=== PATIENT | male | born 1985 ===

== ENCOUNTER 2018-01-20 09:36 | Inpatient (IN) | payer MEDICAID, OTHER ==
[2018-01-20 09:42] VITALS: BMI 27.3
[2018-01-20] MEDS ORDERED: Sodium Chloride 0.9% 1,000 ML IV STA ×3 (10:52→22:01)
[2018-01-20] MEDS ORDERED: Iohexol 240 (50 ml) ONE (10:58)
[2018-01-20] MEDS ORDERED: Morphine 4 MG/ML VIAL ONE ×3 (10:59→15:48)
[2018-01-20] MEDS: Iohexol 240 (50 ml) PO ONE ×2 (11:10→11:35)
[2018-01-20 11:29] LABS: BASO % 0.2 % (0.0-2.0); HEMOGLOBIN 14.2 g/dL (12.0-18.0); LYMPH # 0.9 K/uL (1.0-4.3); LYMPH % 6.6 % (20.0-40.0); MEAN CELL VOLUME 90.8 fl (80.0-94.0); MEAN CORPUSCULAR HEMOGLOBIN 30.1 pg (27.0-31.0); MEAN CORPUSCULAR HGB CONC 33.1 g/dL (33.0-37.0); MEAN PLATELET VOLUME 8.3 fl (7.2-11.7); MONO # 0.5 K/uL (0.0-0.8); MONO % 3.8 % (0.0-10.0); NEUT # 11.5 K/uL (1.8-7.0); NEUT % 89.4 % (50.0-75.0); PLATELET COUNT 289 K/uL (130-400); RBC 4.73 Mil/uL (4.40-5.90); RED CELL DISTRIBUTION WIDTH 12.3 % (11.5-14.5); WHITE BLOOD COUNT 12.9 K/uL (4.8-10.8)
[2018-01-20 11:35] LABS: ALB/GLOB RATIO 1.6 (1.0-2.1); ALT/SGPT 38 U/L (21-72); AST/SGOT 32 U/L (17-59); BLOOD UREA NITROGEN 16 mg/dl (9-20); CALCIUM 10.1 mg/dL (8.4-10.2); GFR AFRICAN-AMERICAN > 60; GFR NON-AFRICAN AMERICAN > 60; LIPASE 140 U/L (23-300)
--- NOTE | 2018-01-20 11:52 | ED PDOC ---
HPI: Abdomen Time Seen by Provider: 01/20/18 09:45 Chief Complaint (Nursing): Abdominal Pain Chief Complaint (Provider): abdominal pain History Per: Patient History/Exam Limitations: no limitations Onset/Duration Of Symptoms: Days (x1) Current Symptoms Are (Timing): Still Present Associated Symptoms: Nausea, Vomiting. denies: Fever, Chills, Diarrhea Additional Complaint(s): Pb Stevenson is a 32 year old male, with a past medical history of diaphragmatic hernia scheduled for surgery in feb, who presents to the emergency department complaining of a generalized abdominal pain associated with nausea onset since yesterday, but has been intermittant for 8 months. Patient vomited once in the ER. He denies any fever, chills, or diarrhea. No further medical complaints. PMD: None provided. Past Medical History Reviewed: Historical Data, Nursing Documentation, Vital Signs Vital Signs: Last Vital Signs Temp 98.4 F 01/20/18 17:45 Pulse 66 01/20/18 17:45 Resp 18 01/20/18 17:45 BP 144/95 H 01/20/18 17:45 Pulse Ox 93 L 01/20/18 17:45 - Medical History Other PMH: diaphragmatic hernia - Surgical History Surgical History: No Surg Hx - Family History Family History: States: Unknown Family Hx - Social History Current smoker - smoking cessation education provided: No Alcohol: None Drugs: Denies - Home Medications Home Medications: Ambulatory Orders Medication Instructions Recorded No Known Home Med 01/20/18 - Allergies Allergies/Adverse Reactions: Allergies Allergy/AdvReac Type Severity Reaction Status Date / Time No Known Allergies Allergy Verified 01/20/18 10:40 Review of Systems ROS Statement: Except As Marked, All Systems Reviewed And Found Negative Constitutional: Negative for: Fever, Chills Gastrointestinal: Positive for: Nausea, Vomiting, Abdominal Pain. Negative for : Diarrhea Physical Exam - Reviewed Nursing Documentation Reviewed: Yes Vital Signs Reviewed: Yes - Physical Exam Appears: Positive for: No Acute Distress Head Exam: Positive for: ATRAUMATIC, NORMAL INSPECTION, NORMOCEPHALIC Skin: Positive for: Normal Color, Warm, Dry Eye Exam: Positive for: Normal appearance, EOMI, PERRL ENT: Positive for: Normal ENT Inspection Neck: Positive for: Painless ROM Cardiovascular/Chest: Positive for: Regular Rate, Rhythm. Negative for: Murmur Respiratory: Positive for: Normal Breath Sounds. Negative for: Respiratory Distress Gastrointestinal/Abdominal: Positive for: Bowel Sounds, Soft, Tenderness ( diffusely ). Negative for: Mass, Distended, Guarding Back: Positive for: Normal Inspection Extremity: Positive for: Normal ROM (upper and lower extremities). Negative for : Deformity, Swelling Neurologic/Psych: Positive for: Alert, Oriented. Negative for: Motor/Sensory Deficits - Laboratory Results Result Diagrams: 01/20/18 10:55 01/20/18 11:15 - ECG O2 Sat by Pulse Oximetry: 97 (RA) Pulse Ox Interpretation: Normal Medical Decision Making Medical Decision Making: Time: 10:01 Initial Impression: abdominal pain r/o appendicitis and diverticulitis Initial Plan: --Abd Pelvis PO & IV contrast [CT] --CMP --Lipase --CBC w/ differential --Morphine 4 mg IV --Sodium Chloride 1,000 ml IV 999 mls/hr --Omnipaque 240 ml 50 ml PO --Zofran Inj 4 mg IV --Reevaluation 11:15 -Family member brought reports of prior CT scans from other facilities. Patient reports pain worsen today and never lasted this long prompting concern for visit. -Explained the need for CT scan but patient is still unsure if he wants it. 12:51 -Patient is still in pain and wants pain medications. Will give more Morphine and agrees CT. 14:30 --CT ABD/pelvis FINDINGS: LOWER THORAX: Left diaphragmatic hernia reiterated with resultant compression of the left lower lobe. There is gastro-esophageal oral contrast reflux into the distal esophagus with the right base unremarkable. Normal cardiac size. Please see details of herniated bowel section below. LIVER: Unremarkable. No gross lesion or ductal dilatation. GALLBLADDER AND BILE DUCTS: Unremarkable. PANCREAS: Unremarkable. No gross lesion or ductal dilatation. SPLEEN: Unremarkable. ADRENALS: Unremarkable. No mass. KIDNEYS AND URETERS: Unremarkable. No hydronephrosis. No solid mass. VASCULATURE: Unremarkable. No aortic aneurysm. BOWEL: A large left dynamic hernia is appreciated which is of uncertain type but is not a Bochdalek type as it occurs more anterior at the left hemidiaphragm than the classic posterior location for Bochdalek hernia. Loops of small and large per oral arm default in this hernia. The splenic flexure is thickened with local mesenteric reaction associated with collapsed small bowel otherwise evident. There are there is also a an aggregate of cysts measuring 2.6 x 5.4 cm abutting the left lateral abdominal wall of uncertain origin. No peripheral enhancement is seen that would suggest abscess. Nevertheless, the pattern is most compatible with segmental colitis affecting the splenic flexure, presumably evident factitious origin though inflammatory or even ischemic causes are not completely excluded. Adequate vascularity of the superior mesenteric artery is appreciated extending into this hernia. No free intra peritoneal gas is identified. Small bowel is only identified in the left hemiabdomen compatible with malrotation. There is mild dilatation of small bowel at the left upper quadrant / left rachel abdomen which are filled with oral contrast. Bowel obstruction is not favored here. Follow-up abdomen radiography is recommended to further evaluate transit of oral contrast through small bowel nevertheless. Distal large bowel is collapsed without prominent dilatation of ascending and transverse colon segments. Large-bowel obstruction is not felt to be present. Again, radiographic follow-up is recommended. APPENDIX: Normal appendix. PERITONEUM: Unremarkable. No free fluid. No free air. LYMPH NODES: Unremarkable. No enlarged lymph nodes. BLADDER: Unremarkable. REPRODUCTIVE: Unremarkable. BONES: No acute fracture. OTHER FINDINGS: None. IMPRESSION: 1. 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 The presumably etiologies infectious although other etiologies are not excluded including inflammatory or ischemia. Follow-up colonoscopy is recommended following therapy as well as an underlying neoplasm is not excluded. 2. No definite additional acute findings. 1545 --Upon re-evaluation, patient is reporting persistent pain. Morphine 6mg IV additionally ordered. Patient will be admitted to medical service given elevated WBC, enteritis, and persistent pain. 1552 --Case discussed with Dr. Taylor medical service. spoke with surgery resident color television console monitor working with Dr Rapp, aware of the patient and consult. . ----- Scribe Attestation: Documented by Errol Palacio and Dior Blackwell, acting as scribes for Melisa Fenton MD. Provider Scribe Attestation: All medical record entries made by the Scribe were at my direction and personally dictated by me. I have reviewed the chart and agree that the record accurately reflects my personal performance of the history, physical exam, medical decision making, and the department course for this patient. I have also personally directed, reviewed, and agree with the discharge instructions and disposition. Disposition - Clinical Impression Clinical Impression: Abdominal pain, Diaphragmatic hernia, Enteritis - Patient ED Disposition Is Patient to be Admitted: No Counseled Patient/Family Regarding: Studies Performed, Diagnosis - Disposition Disposition Time: 15:00 Condition: STABLE
[2018-01-20 12:02] LABS: LYMPHOCYTE 10 % (20-50); MONOCYTE 3 % (0-10); NEUTROPHIL 86 % (42-75); PLATELET ESTIMATE NORMAL (NORMAL); REACTIVE LYMPHOCYTES 1 % (0-0); TOTAL CELLS COUNTED 100
[2018-01-20] MEDS ORDERED: Iohexol 300 100 ML IJ ONE (13:00)
[2018-01-20] MEDS ORDERED: Sodium Chloride 0.9% 50 ML IV ONE (13:01)
--- NOTE | 2018-01-20 15:25 | CT ---
Date of service: 01/20/2018 PROCEDURE: CT Abdomen and Pelvis with contrast HISTORY: generalized abd pain COMPARISON: Noncontrast chest CT 03/09/2013. Abdomen and pelvis CT with contrast 03/09/2013 as well. TECHNIQUE: Following oral and intravenous contrast administration, a CT examination of the abdomen and pelvis performed from the domes of the diaphragms to the symphysis pubis with reformatted datasets provided not only axial but also sagittal and coronal series. Contrast dose: Omnipaque 300, 95 cc Radiation dose: Total exam DLP = 543.82 mGy-cm. This CT exam was performed using one or more of the following dose reduction techniques: Automated exposure control, adjustment of the mA and/or kV according to patient size, and/or use of iterative reconstruction technique. FINDINGS: LOWER THORAX: Left diaphragmatic hernia reiterated with resultant compression of the left lower lobe. There is gastro-esophageal oral contrast reflux into the distal esophagus with the right base unremarkable. Normal cardiac size. Please see details of herniated bowel section below. LIVER: Unremarkable. No gross lesion or ductal dilatation. GALLBLADDER AND BILE DUCTS: Unremarkable. PANCREAS: Unremarkable. No gross lesion or ductal dilatation. SPLEEN: Unremarkable. ADRENALS: Unremarkable. No mass. KIDNEYS AND URETERS: Unremarkable. No hydronephrosis. No solid mass. VASCULATURE: Unremarkable. No aortic aneurysm. BOWEL: A large left dynamic hernia is appreciated which is of uncertain type but is not a Bochdalek type as it occurs more anterior at the left hemidiaphragm than the classic posterior location for Bochdalek hernia. Loops of small and large per oral arm default in this hernia. The splenic flexure is thickened with local mesenteric reaction associated with collapsed small bowel otherwise evident. There are there is also a an aggregate of cysts measuring 2.6 x 5.4 cm abutting the left lateral abdominal wall of uncertain origin. No peripheral enhancement is seen that would suggest abscess. Nevertheless, the pattern is most compatible with segmental colitis affecting the splenic flexure, presumably evident factitious origin though inflammatory or even ischemic causes are not completely excluded. Adequate vascularity of the superior mesenteric artery is appreciated extending into this hernia. No free intra peritoneal gas is identified. Small bowel is only identified in the left hemiabdomen compatible with malrotation. There is mild dilatation of small bowel at the left upper quadrant/ left rachel abdomen which are filled with oral contrast. Bowel obstruction is not favored here. Follow-up abdomen radiography is recommended to further evaluate transit of oral contrast through small bowel nevertheless. Distal large bowel is collapsed without prominent dilatation of ascending and transverse colon segments. Large-bowel obstruction is not felt to be present. Again, radiographic follow-up is recommended. APPENDIX: Normal appendix. PERITONEUM: Unremarkable. No free fluid. No free air. LYMPH NODES: Unremarkable. No enlarged lymph nodes. BLADDER: Unremarkable. REPRODUCTIVE: Unremarkable. BONES: No acute fracture. OTHER FINDINGS: None. IMPRESSION: 1. 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 The presumably etiologies infectious although other etiologies are not excluded including inflammatory or ischemia. Follow-up colonoscopy is recommended following therapy as well as an underlying neoplasm is not excluded. 2. No definite additional acute findings.
[2018-01-20] MEDS ORDERED: Ciprofloxacin 400mg/200ml D5W 400 MG/200 ML BAG IVPB STA (15:45)
[2018-01-20] MEDS ORDERED: metroNIDAZOLE 500mg/100ml NS 100 ML IVPB ONE ×2 (15:49→16:00)
[2018-01-20] MEDS ORDERED: Ciprofloxacin 400mg/200ml D5W 400 MG/200 ML BAG IVPB ONE (15:49)
[2018-01-20] MEDS: HYDROmorphone 1 mg/ml ISec IVP PRN (18:39)
[2018-01-20] MEDS: Dextrose 5%/0.45% NS 1,000 ML IV SCH (18:42)
[2018-01-20] MEDS: Ciprofloxacin 400mg/200ml D5W 400 MG/200 ML BAG IVPB SCH (21:32)
--- NOTE | 2018-01-20 22:14 | CP.PCM.CON ---
<David Masterson - Last Filed: 01/21/18 07:54> History of Present Illness - History of Present Illness History of Present Illness: General Surgery Consult Re: enteritis, diaphragmatic hernia HPI: 32M presented to the ED complaining of a generalized abdominal pain with nausea that began yesterday. 1 x non bloody emesis in ED. He has had the pain intermittently x 8 months but this is the most severe episode. Usually the pain went away within 45 minutes. Denies any fever, chills, headache, SOB, chest pain , constipation, diarrhea, dysuria. Last BM yesterday. He was diagnosed with the diaphragmatic hernia in 2013and was told that since it was chronic and he had been asymptomatic, that there was no need for surgery at that time. Pt No longer nauseous but still with pain. Pt dozing off during interview and exam. Reports he is on schedule for repair of hernia in February with Dr. Alan Cheung. PMH: Diaphragmatic hernia, Hx L Pneumothorax, GERD, Gut malrotation PSH: L chest tube SH: No tobacco, EtOH, or drug use FH: Non contributory All: NKDA Meds: See MAR Review of Systems - Review of Systems All systems: reviewed and no additional remarkable complaints except (as per HPI ) Past Patient History - Past Social History Alcohol: None Drugs: Denies - MUSCULOSKELETAL/RHEUMATOLOGICAL Hx Falls: No - GASTROINTESTINAL Hx Gastrointestinal Disorders: Yes - GENITOURINARY/GYNECOLOGICAL Hx Genitourinary Disorders: Yes - PSYCHIATRIC Hx Substance Use: No - SURGICAL HISTORY Other/Comment: hemopneumothorax - ANESTHESIA Hx Anesthesia: Yes Hx Anesthesia Reactions: No Hx Malignant Hyperthermia: No Has any member of the family had a problem w/ anesthesia?: No Meds Allergies/Adverse Reactions: Allergies Allergy/AdvReac Type Severity Reaction Status Date / Time No Known Allergies Allergy Verified 01/20/18 10:40 - Medications Medications: Current Medications Hydromorphone HCl (Dilaudid) 1 mg IVP Q4H PRN PRN Reason: Pain, moderate (4-7) Last Admin: 01/20/18 18:39 Dose: 1 mg Hydromorphone HCl (Dilaudid) 2 mg IVP Q4 PRN PRN Reason: Pain, severe (8-10) Dextrose/Sodium Chloride (Dextrose 5%/0.45% Ns 1000 Ml) 1,000 mls @ 100 mls/hr IV .Q10H KIEL Stop: 01/21/18 18:14 Last Admin: 01/20/18 18:42 Dose: 100 mls/hr Ciprofloxacin (Cipro 400mg/200ml Dsw) 400 mg in 200 mls @ 200 mls/hr IVPB Q12 KIEL PRN Reason: Protocol Last Admin: 01/20/18 21:32 Dose: 200 mls/hr Metronidazole (Flagyl 500mg/100ml Ns) 100 mls @ 100 mls/hr IVPB Q8 KIEL PRN Reason: Protocol Sodium Chloride (Sodium Chloride 0.9%) 1,000 mls @ 999 mls/hr IV .Q1H1M STA Stop: 01/20/18 23:01 Ondansetron HCl (Zofran Inj) 4 mg IVP Q4 PRN PRN Reason: Nausea/Vomiting Last Admin: 01/20/18 18:38 Dose: 4 mg Pantoprazole Sodium (Protonix Inj) 40 mg IVP Q12 [facility] Physical Exam - Constitutional Appears: Non-toxic, No Acute Distress - Head Exam Head Exam: ATRAUMATIC, NORMOCEPHALIC Results - Vital Signs Recent Vital Signs: Last Vital Signs Temp 98.4 F 01/20/18 17:45 Pulse 80 01/20/18 18:22 Resp 18 01/20/18 18:22 BP 144/95 H 01/20/18 17:45 Pulse Ox 97 01/20/18 18:51 - Labs Result Diagrams: 01/21/18 06:30 01/20/18 11:15 Labs: Laboratory Results - last 24 hr 01/20/18 01/20/18 10:55 11:15 WBC 12.9 H RBC 4.73 Hgb 14.2 Hct 43.0 MCV 90.8 MCH 30.1 MCHC 33.1 RDW 12.3 Plt Count 289 MPV 8.3 Neut % (Auto) 89.4 H Lymph % (Auto) 6.6 L [place] % (Auto) 3.8 Eos % (Auto) 0.0 Baso % (Auto) 0.2 Neut # (Auto) 11.5 H Lymph # (Auto) 0.9 L [place] # (Auto) 0.5 Eos # (Auto) 0.0 Baso # (Auto) 0.0 Neutrophils % (Manual) 86 H Lymphocytes % (Manual) 10 L Reactive Lymphs % 1 H Monocytes % (Manual) 3 Platelet Estimate Normal RBC Morphology Normal Sodium 140 Potassium 4.3 Chloride 104 Carbon Dioxide 25 Anion Gap 15 BUN 16 Creatinine 0.8 Est GFR ( Amer) > 60 Est GFR (Non-Af Amer) > 60 Random Glucose 111 H Calcium 10.1 Total Bilirubin 0.9 AST 32 ALT 38 Alkaline Phosphatase 78 Total Protein 8.1 Albumin 5.0 Globulin 3.1 Albumin/Globulin Ratio 1.6 Lipase 140 - Imaging and Cardiology CT scan - abdomen Status: Image reviewed by me, Report reviewed by me CT scan - chest Status: Image reviewed by me (non contrast), Report reviewed by me Assessment & Plan - Assessment and Plan (Free Text) Assessment: 32M with L diaphragmatic hernia and enteritis. Plan: R/O ischemic bowel AM labs - refused VBG to check lactate CT chest with contrast - refused by patient at this time as he had a chest scan (without contrast) today. I explained the need for accurate diagnosis and the possibility of if not properly diagnosed, and he still refused the scan at this time. Will try again tomorrow or if symptoms worsen. Pt will need a specialist who performs these types of surgeries for possible repair. Will try to contact pts CT surgeon Dr. Cheung. May need to be transferred to Dr. Cheung for treatment. D/W Dr. Dionte Masterson PGY4 <Harley Rapp - Last Filed: 01/21/18 14:06> History of Present Illness - History of Present Illness History of Present Illness: Patient was seen and examined at the bedside. Agree with resident's note above. Meds - Medications Medications: Current Medications Hydromorphone HCl (Dilaudid) 1 mg IVP Q4H PRN PRN Reason: Pain, moderate (4-7) Last Admin: 01/20/18 18:39 Dose: 1 mg Hydromorphone HCl (Dilaudid) 2 mg IVP Q4 PRN PRN Reason: Pain, severe (8-10) Last Admin: 01/21/18 13:22 Dose: 2 mg Dextrose/Sodium Chloride (Dextrose 5%/0.45% Ns 1000 Ml) 1,000 mls @ 100 mls/hr IV .Q10H KIEL Stop: 08/10/18 18:14 Last Admin: 01/21/18 05:50 Dose: Not Given Ciprofloxacin (Cipro 400mg/200ml Dsw) 400 mg in 200 mls @ 200 mls/hr IVPB Q12 KIEL PRN Reason: Protocol Last Admin: 01/21/18 09:07 Dose: 200 mls/hr Metronidazole (Flagyl 500mg/100ml Ns) 100 mls @ 100 mls/hr IVPB Q8 KIEL PRN Reason: Protocol Last Admin: 01/21/18 10:50 Dose: 100 mls/hr Ondansetron HCl (Zofran Inj) 4 mg IVP Q4 PRN PRN Reason: Nausea/Vomiting Last Admin: 01/21/18 09:19 Dose: 4 mg Pantoprazole Sodium (Protonix Inj) 40 mg IVP Q12 KIEL Last Admin: 01/21/18 09:12 Dose: 40 mg Physical Exam - Eye Exam Eye Exam: EOMI, Normal appearance, PERRL Pupil Exam: NORMAL ACCOMODATION - ENT Exam ENT Exam: Mucous Membranes Moist - Neck Exam Neck exam: Positive for: Full Rom, Normal Inspection - Respiratory Exam Additional comments: right CTA, no breath sounds on the left side - Cardiovascular Exam Cardiovascular Exam: REGULAR RHYTHM, +S1, +S2 - GI/Abdominal Exam GI & Abdominal Exam: Normal Bowel Sounds, Soft Additional comments: mildly tender to palpation, ND, no rebound - Rectal Exam Rectal Exam: Deferred - Extremities Exam Extremities exam: Positive for: full ROM, normal inspection - Back Exam Back exam: NORMAL INSPECTION - Neurological Exam Neurological exam: CN II-XII Intact, Normal Gait, Oriented x3 - Psychiatric Exam Psychiatric exam: Normal Affect, Normal Mood - Skin Skin Exam: Dry, Intact, Normal Color, Warm Results - Vital Signs Recent Vital Signs: Last Vital Signs Temp 97.9 F 01/21/18 08:26 Pulse 76 01/21/18 08:26 Resp 19 01/21/18 08:26 BP 153/88 H 01/21/18 08:26 Pulse Ox 93 L 01/21/18 08:26 - Labs Result Diagrams: 01/21/18 06:30 01/21/18 06:30 Labs: Laboratory Results - last 24 hr 01/21/18 01/21/18 06:30 06:30 WBC 15.6 H RBC 4.64 Hgb 14.1 Hct 41.7 MCV 89.8 MCH 30.4 MCHC 33.9 RDW 12.1 Plt Count 234 Sodium 135 Potassium 3.9 Chloride 97 L Carbon Dioxide 24 Anion Gap 18 BUN 11 Creatinine 0.6 L Est GFR ( Amer) > 60 Est GFR (Non-Af Amer) > 60 Random Glucose 116 H Calcium 10.0 Total Bilirubin 0.9 AST 24 ALT 36 Alkaline Phosphatase 73 Total Protein 7.6 Albumin 4.6 Globulin 2.9 Albumin/Globulin Ratio 1.6 Assessment & Plan - Assessment and Plan (Free Text) Plan: - Keep NPO - IV fluid hydration - Continue with antibiotics - Working on transferring patient to his surgeon Dr. Cheung at [facility] - Recommend Thoracic surgery consultation - No general surgery intervention secondary to his diaphragmatic herniation happen years ago and now everything is adhesed in the left thorax, if [patient is to undergo surgery it will have to be by thoracic surgery
[2018-01-21] MEDS: metroNIDAZOLE 500mg/100ml NS 100 ML IVPB SCH ×3 (01:04→17:22)
[2018-01-21] MEDS: Dextrose 5%/0.45% NS 1,000 ML IV SCH ×2 (05:50→14:57)
[2018-01-21 07:37] LABS: HEMOGLOBIN 14.1 g/dL (12.0-18.0); MEAN CELL VOLUME 89.8 fl (80.0-94.0); MEAN CORPUSCULAR HEMOGLOBIN 30.4 pg (27.0-31.0); MEAN CORPUSCULAR HGB CONC 33.9 g/dL (33.0-37.0); RBC 4.64 Mil/uL (4.40-5.90); RED CELL DISTRIBUTION WIDTH 12.1 % (11.5-14.5); WHITE BLOOD COUNT 15.6 K/uL (4.8-10.8)
[2018-01-21 08:06] LABS: ALB/GLOB RATIO 1.6 (1.0-2.1); ALBUMIN 4.6 g/dL (3.5-5.0); ALT/SGPT 36 U/L (21-72); AST/SGOT 24 U/L (17-59); BLOOD UREA NITROGEN 11 mg/dl (9-20); GFR AFRICAN-AMERICAN > 60; GFR NON-AFRICAN AMERICAN > 60
--- NOTE | 2018-01-21 08:24 | CP.PCM.PN ---
<Eunice Stroud - Last Filed: 01/21/18 08:22> Subjective - Date & Time of Evaluation Date of Evaluation: 01/21/18 Time of Evaluation: 07:40 - Subjective Subjective: General Surgery Dr. Rapp Pt S&E @bedside. STEPH. pt reports 1 episode NBNB vomiting. pain mildly improved. denies F/C. refusing CT Chest, stating that hes had too many CT scans in the last year and fears the radiation. Objective - Vital Signs/Intake and Output Vital Signs (last 24 hours): Temp Pulse Resp BP Pulse Ox 98.0 F 95 H 19 131/79 95 01/21/18 00:00 01/21/18 00:00 01/21/18 00:00 01/21/18 00:00 01/21/18 00:00 - Medications Medications: Current Medications Hydromorphone HCl (Dilaudid) 1 mg IVP Q4H PRN PRN Reason: Pain, moderate (4-7) Last Admin: 01/20/18 18:39 Dose: 1 mg Hydromorphone HCl (Dilaudid) 2 mg IVP Q4 PRN PRN Reason: Pain, severe (8-10) Last Admin: 01/21/18 02:57 Dose: 2 mg Dextrose/Sodium Chloride (Dextrose 5%/0.45% Ns 1000 Ml) 1,000 mls @ 100 mls/hr IV .Q10H KIEL Stop: 01/21/18 18:14 Last Admin: 01/21/18 05:50 Dose: Not Given Ciprofloxacin (Cipro 400mg/200ml Dsw) 400 mg in 200 mls @ 200 mls/hr IVPB Q12 KIEL PRN Reason: Protocol Last Admin: 01/20/18 21:32 Dose: 200 mls/hr Metronidazole (Flagyl 500mg/100ml Ns) 100 mls @ 100 mls/hr IVPB Q8 KIEL PRN Reason: Protocol Last Admin: 01/21/18 01:04 Dose: 100 mls/hr Ondansetron HCl (Zofran Inj) 4 mg IVP Q4 PRN PRN Reason: Nausea/Vomiting Last Admin: 01/20/18 18:38 Dose: 4 mg Pantoprazole Sodium (Protonix Inj) 40 mg IVP Q12 KIEL - Labs Labs: 01/21/18 06:30 01/21/18 06:30 - Constitutional Appears: Non-toxic, No Acute Distress - Head Exam Head Exam: NORMAL INSPECTION - Eye Exam Eye Exam: Normal appearance - ENT Exam ENT Exam: Mucous Membranes Moist - Respiratory Exam Respiratory Exam: NORMAL BREATHING PATTERN. absent: Accessory Muscle Use - Cardiovascular Exam Cardiovascular Exam: REGULAR RHYTHM. absent: Bradycardia, Tachycardia - GI/Abdominal Exam GI & Abdominal Exam: Soft, Tenderness (diffuse TTP, worse in epigastrium). absent: Distended, Firm, Guarding, Rigid, Rebound - Extremities Exam Extremities Exam: Normal Inspection - Neurological Exam Neurological Exam: Alert, Awake, Oriented x3 - Psychiatric Exam Psychiatric exam: Normal Affect, Normal Mood - Skin Skin Exam: Dry, Intact, Normal Color, Warm Assessment and Plan - Assessment and Plan (Free Text) Assessment: 32 y/o M w/ congenital diaphragmatic hernia c/o abd pain 2/2 enteritis vs obstruction - NPO/IVF - pain management - monitor bowel fxn - anti-emetic - daily labs - Pt refusing CT chest - Pt reports scheduled surgery in Feb @[facility] w/ Dr. Alan Cheung - consider transferring pt to [facility] for further workup and surgical intervention Pt discussed w/ Dr. Dionte Stroud DO PGY3 <Harley Rapp - Last Filed: 01/21/18 14:08> Subjective - Date & Time of Evaluation Time of Evaluation: 13:30 - Subjective Subjective: Patient was seen and examined at the bedside. Agree with resident's note above. Objective - Vital Signs/Intake and Output Vital Signs (last 24 hours): Temp Pulse Resp BP Pulse Ox 97.9 F 76 19 153/88 H 93 L 01/21/18 08:26 01/21/18 08:26 01/21/18 08:26 01/21/18 08:26 01/21/18 08:26 - Medications Medications: Current Medications Hydromorphone HCl (Dilaudid) 1 mg IVP Q4H PRN PRN Reason: Pain, moderate (4-7) Last Admin: 01/20/18 18:39 Dose: 1 mg Hydromorphone HCl (Dilaudid) 2 mg IVP Q4 PRN PRN Reason: Pain, severe (8-10) Last Admin: 01/21/18 13:22 Dose: 2 mg Dextrose/Sodium Chloride (Dextrose 5%/0.45% Ns 1000 Ml) 1,000 mls @ 100 mls/hr IV .Q10H KIEL Stop: 01/21/18 18:14 Last Admin: 01/21/18 05:50 Dose: Not Given Ciprofloxacin (Cipro 400mg/200ml Dsw) 400 mg in 200 mls @ 200 mls/hr IVPB Q12 KIEL PRN Reason: Protocol Last Admin: 01/21/18 09:07 Dose: 200 mls/hr Metronidazole (Flagyl 500mg/100ml Ns) 100 mls @ 100 mls/hr IVPB Q8 KIEL PRN Reason: Protocol Last Admin: 01/21/18 10:50 Dose: 100 mls/hr Ondansetron HCl (Zofran Inj) 4 mg IVP Q4 PRN PRN Reason: Nausea/Vomiting Last Admin: 01/21/18 09:19 Dose: 4 mg Pantoprazole Sodium (Protonix Inj) 40 mg IVP Q12 KIEL Last Admin: 01/21/18 09:12 Dose: 40 mg - Labs Labs: 01/21/18 06:30 01/21/18 06:30 Assessment and Plan - Assessment and Plan (Free Text) Plan: - Keep NPO - IV fluid hydration - Continue with antibiotics - Working on transferring patient to his surgeon Dr. Cheung at [facility] - Recommend Thoracic surgery consultation - No general surgery intervention secondary to his diaphragmatic herniation happen years ago and now everything is adhesed in the left thorax, if patient is to undergo surgery it will have to be done by a thoracic surgeon
[2018-01-21] MEDS: Ciprofloxacin 400mg/200ml D5W 400 MG/200 ML BAG IVPB SCH ×2 (09:07→21:26)
[2018-01-21] MEDS ORDERED: Iohexol 300 100 ML IJ ONE (12:51)
[2018-01-21] MEDS ORDERED: Sodium Chloride 0.9% 100 ML ONE (12:51)
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
--- NOTE | 2018-01-21 13:57 | CT ---
Date of service: 01/21/2018 PROCEDURE: CT Chest with contrast HISTORY: Exam of chest and diaphragmatic hernia COMPARISON: None available. TECHNIQUE: Contiguous axial images were obtained through the chest with intravenous contrast enhancement. Sagittal and coronal reconstructions were performed. IV contrast: Radiation dose (DLP): mGy-cm. This CT exam was performed using one or more of the following dose reduction techniques: Automated exposure control, adjustment of the mA and/or kV according to patient size, and/or use of iterative reconstruction technique. FINDINGS: LUNGS: Compressive atelectasis of primarily left lower lobe and lingula. This is from the hernia. MEDIASTINUM: Shift of mediastinal structures to the right related to intra-abdominal contents in the left rachel thorax. Unremarkable thoracic aorta. No aneurysm or dissection. Normal sized heart. Main pulmonary artery unremarkable. No vascular congestion. No lymphadenopathy. PLEURA: Small left pleural effusion. BONES: No fracture. No destructive lesion. UPPER ABDOMEN: Grossly unremarkable. OTHER FINDINGS: Anterior diaphragmatic hernia. The anterior diaphragmatic hernia opening 3.8 x 4 cm. The intrathoracic components include mesenteries, splenic flexure, and abundant intra-abdominal fat. The stomach and spleen however remain within the abdominal peritoneal cavity. There is no evidence of torsion of the mesenteries. No evidence of incarceration of colon or obstruction. IMPRESSION: Diaphragmatic hernia, with intrathoracic contents including mesenteries and colon. In the absence of a history of trauma this is likely congenital/Bochdalek's hernia. Compressive atelectasis and left pleural effusion from contents of the hernia which includes colon, mesenteric and fat. The hernia is best seen on sagittal and coronal images with a maximum diastases of the diaphragm 4 cm.
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
--- NOTE | 2018-01-21 15:20 | CP.PCM.PCO ---
Assessment/Plan - Assessment/Plan Assessment (Free Text): Patient to be transferred to [facility] per Dr. Rapp and 's recommendation. Dr. Rapp does not perform the kind of surgery that the patient needs and also the patient has his surgeon (Dr. Alan Cheung) at [facility] and was scheduled for surgery in February. Spoke to YESICA Rader from Dr. Cheung's office ([phone]), Dr. Cheung will accept the patient as a transfer. She will contact their admissions office for arrangements to be made. Dr. Cheung requesting a CD of the CT Abd/Pelvis and CT chest. We will obtain CD from radiology and send with patient, RN and air conditioning unit assembler aware. Swetha SANDHU made aware of the transfer. She will contact insurance. Patient aware of plan and agrees.
[2018-01-21] MEDS ORDERED: DiphenhydrAMINE 50 mg/ml Inj IVP STA (19:27)
[2018-01-22] MEDS: metroNIDAZOLE 500mg/100ml NS 100 ML IVPB SCH ×3 (00:10→16:02)
[2018-01-22] MEDS: Ciprofloxacin 400mg/200ml D5W 400 MG/200 ML BAG IVPB SCH ×2 (08:04→22:11)
--- NOTE | 2018-01-22 08:26 | CP.PCM.PN ---
<Eunice Stroud - Last Filed: 01/22/18 11:55> Subjective - Date & Time of Evaluation Date of Evaluation: 01/22/18 Time of Evaluation: 07:45 - Subjective Subjective: General Surgery Dr. Rapp Pt S&E @bedside. NAEO. sleeping comfortably. Per nursing, c/o pain overnight, resolved w/ meds. pt scheduled for transfer to [facility], awaiting bed availability. Objective - Vital Signs/Intake and Output Vital Signs (last 24 hours): Temp Pulse Resp BP Pulse Ox 99 F 97 H 18 122/87 95 01/22/18 00:31 01/22/18 00:31 01/22/18 00:31 01/22/18 00:31 01/22/18 00:31 - Medications Medications: Current Medications Hydromorphone HCl (Dilaudid) 1 mg IVP Q4H PRN PRN Reason: Pain, moderate (4-7) Last Admin: 01/20/18 18:39 Dose: 1 mg Hydromorphone HCl (Dilaudid) 2 mg IVP Q4 PRN PRN Reason: Pain, severe (8-10) Last Admin: 01/22/18 08:03 Dose: 2 mg Ciprofloxacin (Cipro 400mg/200ml Dsw) 400 mg in 200 mls @ 200 mls/hr IVPB Q12 KIEL PRN Reason: Protocol Last Admin: 01/22/18 08:04 Dose: 200 mls/hr Metronidazole (Flagyl 500mg/100ml Ns) 100 mls @ 100 mls/hr IVPB Q8 KIEL PRN Reason: Protocol Last Admin: 01/22/18 08:04 Dose: 100 mls/hr Ondansetron HCl (Zofran Inj) 4 mg IVP Q4 PRN PRN Reason: Nausea/Vomiting Last Admin: 01/21/18 18:58 Dose: 4 mg Pantoprazole Sodium (Protonix Inj) 40 mg IVP Q12 KIEL Last Admin: 01/22/18 08:04 Dose: 40 mg - Labs Labs: 01/21/18 06:30 01/21/18 06:30 - Constitutional Appears: Non-toxic, No Acute Distress - Head Exam Head Exam: NORMAL INSPECTION - Eye Exam Eye Exam: Normal appearance - ENT Exam ENT Exam: Mucous Membranes Moist - Respiratory Exam Respiratory Exam: NORMAL BREATHING PATTERN. absent: Accessory Muscle Use, Respiratory Distress - Cardiovascular Exam Cardiovascular Exam: REGULAR RHYTHM. absent: Bradycardia, Tachycardia - GI/Abdominal Exam GI & Abdominal Exam: Distended (mild), Guarding (voluntary), Tenderness - Extremities Exam Extremities Exam: Normal Inspection - Neurological Exam Neurological Exam: Oriented x3 - Psychiatric Exam Psychiatric exam: Normal Affect, Normal Mood - Skin Skin Exam: Dry, Intact, Normal Color, Warm Assessment and Plan - Assessment and Plan (Free Text) Assessment: 32 y/o M w/ incarcerated traumatic diaphragmatic hernia - NPO/IVF - cont pain management - cont anti-emetic - awaiting transfer to [facility] - cont non-operative management - GI/DVT PPx Pt discussed w/ Dr. Dionte Stroud DO PGY3 <Harley Rapp - Last Filed: 01/22/18 15:54> Subjective - Date & Time of Evaluation Time of Evaluation: 15:25 - Subjective Subjective: Patient was seen and examined at the bedside. Agree with resident's note above. Objective - Vital Signs/Intake and Output Vital Signs (last 24 hours): Temp Pulse Resp BP Pulse Ox 97.8 F 92 H 20 130/88 98 01/22/18 08:55 01/22/18 08:55 01/22/18 08:55 01/22/18 08:55 01/22/18 08:55 - Medications Medications: Current Medications Hydromorphone HCl (Dilaudid) 1 mg IVP Q4H PRN PRN Reason: Pain, moderate (4-7) Last Admin: 01/20/18 18:39 Dose: 1 mg Hydromorphone HCl (Dilaudid) 2 mg IVP Q4 PRN PRN Reason: Pain, severe (8-10) Last Admin: 01/22/18 12:52 Dose: 2 mg Ciprofloxacin (Cipro 400mg/200ml Dsw) 400 mg in 200 mls @ 200 mls/hr IVPB Q12 KIEL PRN Reason: Protocol Last Admin: 01/22/18 08:04 Dose: 200 mls/hr Metronidazole (Flagyl 500mg/100ml Ns) 100 mls @ 100 mls/hr IVPB Q8 KIEL PRN Reason: Protocol Last Admin: 01/22/18 08:04 Dose: 100 mls/hr Dextrose/Sodium Chloride (Dextrose 5%/0.45% Ns 1000 Ml) 1,000 mls @ 100 mls/hr IV .Q10H KIEL Stop: 01/23/18 13:22 Ondansetron HCl (Zofran Inj) 4 mg IVP Q4 PRN PRN Reason: Nausea/Vomiting Last Admin: 01/21/18 18:58 Dose: 4 mg Pantoprazole Sodium (Protonix Inj) 40 mg IVP Q12 KIEL Last Admin: 01/22/18 08:04 Dose: 40 mg - Labs Labs: 01/21/18 06:30 01/21/18 06:30 - GI/Abdominal Exam Additional comments: soft, very mildly tender, ND, BS+, no rebound, no guarding
[2018-01-22] MEDS: Dextrose 5%/0.45% NS 1,000 ML IV SCH (16:01)
--- NOTE | 2018-01-22 19:34 | CP.PCM.PN ---
Subjective - Date & Time of Evaluation Date of Evaluation: 01/22/18 Time of Evaluation: 13:40 - Subjective Subjective: F/U Abdominal pain/ Diaphragmatic hernia. No abdominal pain now, had previously Dilaudid. Objective - Vital Signs/Intake and Output Vital Signs (last 24 hours): Temp Pulse Resp BP Pulse Ox 98.6 F 99 H 18 151/82 H 95 01/22/18 16:12 01/22/18 16:12 01/22/18 16:12 01/22/18 16:12 01/22/18 16:12 - Medications Medications: Current Medications Hydromorphone HCl (Dilaudid) 1 mg IVP Q4H PRN PRN Reason: Pain, moderate (4-7) Last Admin: 01/20/18 18:39 Dose: 1 mg Hydromorphone HCl (Dilaudid) 2 mg IVP Q4 PRN PRN Reason: Pain, severe (8-10) Last Admin: 01/22/18 17:12 Dose: 2 mg Ciprofloxacin (Cipro 400mg/200ml Dsw) 400 mg in 200 mls @ 200 mls/hr IVPB Q12 KIEL PRN Reason: Protocol Last Admin: 01/22/18 08:04 Dose: 200 mls/hr Metronidazole (Flagyl 500mg/100ml Ns) 100 mls @ 100 mls/hr IVPB Q8 KIEL PRN Reason: Protocol Last Admin: 01/22/18 16:02 Dose: 100 mls/hr Dextrose/Sodium Chloride (Dextrose 5%/0.45% Ns 1000 Ml) 1,000 mls @ 100 mls/hr IV .Q10H KIEL Stop: 01/23/18 13:22 Last Admin: 01/22/18 16:01 Dose: 100 mls/hr Ondansetron HCl (Zofran Inj) 4 mg IVP Q4 PRN PRN Reason: Nausea/Vomiting Last Admin: 01/21/18 18:58 Dose: 4 mg Pantoprazole Sodium (Protonix Inj) 40 mg IVP Q12 KIEL Last Admin: 01/22/18 08:04 Dose: 40 mg - Labs Labs: 01/21/18 06:30 01/21/18 06:30 - Constitutional Appears: No Acute Distress - Head Exam Head Exam: NORMAL INSPECTION - Eye Exam Eye Exam: PERRL - ENT Exam ENT Exam: Normal Exam - Neck Exam Neck Exam: Normal Inspection - Respiratory Exam Respiratory Exam: Clear to Ausculation Bilateral - Cardiovascular Exam Cardiovascular Exam: REGULAR RHYTHM - GI/Abdominal Exam GI & Abdominal Exam: Distended (mild), Guarding (mild LLQ), Tenderness (all quadrants, prominent LLQ.), Normal Bowel Sounds - Extremities Exam Extremities Exam: Normal Inspection - Back Exam Back Exam: NORMAL INSPECTION - Neurological Exam Neurological Exam: Alert, Oriented x3. absent: Motor Sensory Deficit - Psychiatric Exam Psychiatric exam: Anxious - Skin Skin Exam: Normal Color, Warm Assessment and Plan (1) Abdominal pain Status: Acute (2) Diaphragmatic hernia Status: Acute (3) Enteritis Status: Acute - Assessment and Plan (Free Text) Plan: Continue Flagyl, Cipro, Dilaudid, Protonix and rest of Tx. Scheduled to be transferred to [facility] in [place], awaiting for available bed.
[2018-01-23] MEDS: metroNIDAZOLE 500mg/100ml NS 100 ML IVPB SCH ×3 (00:49→16:39)
[2018-01-23] MEDS: Dextrose 5%/0.45% NS 1,000 ML IV SCH (00:50)
--- NOTE | 2018-01-23 07:47 | CP.PCM.PN ---
<Zeina Francis - Last Filed: 01/23/18 07:47> Subjective - Date & Time of Evaluation Date of Evaluation: 01/23/18 Time of Evaluation: 07:45 - Subjective Subjective: General surgery progress note for Dr. Rapp-Zeina Francis, PGY-2 Pt S & E at bedside at 0640 Pt continues with abdominal pain, now with back pain due to bed as well. Pt very anxious to be transferred to [facility] for care under Dr. Cheung. Per nursing- pt requiring regular pain medications overnight, [facility] called this AM- still no bed available for pt. Denies N & V, F & C, other complaints. Objective - Vital Signs/Intake and Output Vital Signs (last 24 hours): Temp Pulse Resp BP Pulse Ox 98 F 100 H 20 132/99 H 95 01/23/18 05:35 01/23/18 05:35 01/23/18 05:35 01/23/18 05:35 01/23/18 05:35 - Medications Medications: Current Medications Hydromorphone HCl (Dilaudid) 1 mg IVP Q4H PRN PRN Reason: Pain, moderate (4-7) Last Admin: 01/20/18 18:39 Dose: 1 mg Hydromorphone HCl (Dilaudid) 2 mg IVP Q4 PRN PRN Reason: Pain, severe (8-10) Last Admin: 01/23/18 05:47 Dose: 2 mg Ciprofloxacin (Cipro 400mg/200ml Dsw) 400 mg in 200 mls @ 200 mls/hr IVPB Q12 KIEL PRN Reason: Protocol Last Admin: 01/22/18 22:11 Dose: 200 mls/hr Metronidazole (Flagyl 500mg/100ml Ns) 100 mls @ 100 mls/hr IVPB Q8 KIEL PRN Reason: Protocol Last Admin: 01/23/18 00:49 Dose: 100 mls/hr Dextrose/Sodium Chloride (Dextrose 5%/0.45% Ns 1000 Ml) 1,000 mls @ 100 mls/hr IV .Q10H KIEL Stop: 01/23/18 13:22 Last Admin: 01/23/18 00:50 Dose: Not Given Ondansetron HCl (Zofran Inj) 4 mg IVP Q4 PRN PRN Reason: Nausea/Vomiting Last Admin: 01/21/18 18:58 Dose: 4 mg Pantoprazole Sodium (Protonix Inj) 40 mg IVP Q12 KIEL Last Admin: 01/22/18 22:12 Dose: 40 mg - Labs Labs: 01/21/18 06:30 01/21/18 06:30 - Constitutional Appears: Non-toxic, No Acute Distress - Head Exam Head Exam: ATRAUMATIC, NORMAL INSPECTION, NORMOCEPHALIC - Eye Exam Eye Exam: EOMI, Normal appearance - ENT Exam ENT Exam: Mucous Membranes Moist, Normal Exam - Neck Exam Neck Exam: Full ROM, Normal Inspection - Respiratory Exam Respiratory Exam: NORMAL BREATHING PATTERN - Cardiovascular Exam Cardiovascular Exam: REGULAR RHYTHM - GI/Abdominal Exam GI & Abdominal Exam: Soft, Tenderness (suprapubic and epigastric). absent: Distended, Firm, Guarding - Extremities Exam Extremities Exam: Tenderness (mid back) - Neurological Exam Neurological Exam: Alert, Awake, CN II-XII Intact, Oriented x3 - Psychiatric Exam Psychiatric exam: Normal Affect, Normal Mood - Skin Skin Exam: Dry, Intact, Normal Color, Warm Assessment and Plan - Assessment and Plan (Free Text) Assessment: 32M w/incarcerated diaphragmatic hernia Plan: NPO IVF Pain control PRN Anti-emetic PRN Transfer to [facility] when bed available Cont Non-operative mgmt at this time GI/DVT ppx Will DW attending Penny, PGY-2 <Harley Rapp - Last Filed: 01/23/18 14:13> Subjective - Date & Time of Evaluation Time of Evaluation: 14:00 - Subjective Subjective: Patient was seen and examined at the bedside. Agree with resident's note above. Objective - Vital Signs/Intake and Output Vital Signs (last 24 hours): Temp Pulse Resp BP Pulse Ox 98 F 102 H 20 127/84 90 L 01/23/18 08:28 01/23/18 08:28 01/23/18 08:28 01/23/18 08:28 01/23/18 08:28 - Medications Medications: Current Medications Hydromorphone HCl (Dilaudid) 1 mg IVP Q4H PRN PRN Reason: Pain, moderate (4-7) Last Admin: 01/23/18 08:12 Dose: 1 mg Hydromorphone HCl (Dilaudid) 2 mg IVP Q3H PRN PRN Reason: Pain, severe (8-10) Last Admin: 01/23/18 13:33 Dose: 2 mg Ciprofloxacin (Cipro 400mg/200ml Dsw) 400 mg in 200 mls @ 200 mls/hr IVPB Q12 KIEL PRN Reason: Protocol Last Admin: 01/23/18 08:20 Dose: 200 mls/hr Metronidazole (Flagyl 500mg/100ml Ns) 100 mls @ 100 mls/hr IVPB Q8 KIEL PRN Reason: Protocol Last Admin: 01/23/18 08:18 Dose: 100 mls/hr Ondansetron HCl (Zofran Inj) 4 mg IVP Q4 PRN PRN Reason: Nausea/Vomiting Last Admin: 01/21/18 18:58 Dose: 4 mg Pantoprazole Sodium (Protonix Inj) 40 mg IVP Q12 [facility] Last Admin: 01/23/18 08:24 Dose: 40 mg - Labs Labs: 01/21/18 06:30 01/21/18 06:30
[2018-01-23] MEDS: HYDROmorphone 1 mg/ml ISec IVP PRN (08:12)
[2018-01-23] MEDS: Ciprofloxacin 400mg/200ml D5W 400 MG/200 ML BAG IVPB SCH ×2 (08:20→21:18)
--- NOTE | 2018-01-23 13:35 | CP.PCM.PN ---
Subjective - Date & Time of Evaluation Date of Evaluation: 01/23/18 Time of Evaluation: 11:30 - Subjective Subjective: F/U Diaphragmatic Hernia, incarcerated Pt c/o of abdominal pain LUQ. Objective - Vital Signs/Intake and Output Vital Signs (last 24 hours): Temp Pulse Resp BP Pulse Ox 98 F 102 H 20 127/84 90 L 01/23/18 08:28 01/23/18 08:28 01/23/18 08:28 01/23/18 08:28 01/23/18 08:28 - Medications Medications: Current Medications Hydromorphone HCl (Dilaudid) 1 mg IVP Q4H PRN PRN Reason: Pain, moderate (4-7) Last Admin: 01/23/18 08:12 Dose: 1 mg Hydromorphone HCl (Dilaudid) 2 mg IVP Q3H PRN PRN Reason: Pain, severe (8-10) Last Admin: 01/23/18 13:33 Dose: 2 mg Ciprofloxacin (Cipro 400mg/200ml Dsw) 400 mg in 200 mls @ 200 mls/hr IVPB Q12 [facility] PRN Reason: Protocol Last Admin: 01/23/18 08:20 Dose: 200 mls/hr Metronidazole (Flagyl 500mg/100ml Ns) 100 mls @ 100 mls/hr IVPB Q8 [facility] PRN Reason: Protocol Last Admin: 01/23/18 08:18 Dose: 100 mls/hr Ondansetron HCl (Zofran Inj) 4 mg IVP Q4 PRN PRN Reason: Nausea/Vomiting Last Admin: 01/21/18 18:58 Dose: 4 mg Pantoprazole Sodium (Protonix Inj) 40 mg IVP Q12 [facility] Last Admin: 01/23/18 08:24 Dose: 40 mg - Labs Labs: 01/21/18 06:30 01/21/18 06:30 - Constitutional Appears: No Acute Distress - Head Exam Head Exam: NORMAL INSPECTION - Eye Exam Eye Exam: PERRL - ENT Exam ENT Exam: Normal Exam - Neck Exam Neck Exam: Normal Inspection - Respiratory Exam Respiratory Exam: NORMAL BREATHING PATTERN - Cardiovascular Exam Cardiovascular Exam: REGULAR RHYTHM - GI/Abdominal Exam GI & Abdominal Exam: Tenderness (minimal LUQ), Normal Bowel Sounds. absent: Guarding, Rebound - Extremities Exam Extremities Exam: Normal Inspection - Back Exam Back Exam: NORMAL INSPECTION - Neurological Exam Neurological Exam: Alert, Oriented x3. absent: Motor Sensory Deficit - Psychiatric Exam Psychiatric exam: Anxious - Skin Skin Exam: Warm Assessment and Plan (1) Abdominal pain Status: Acute (2) Diaphragmatic hernia Status: Acute (3) Enteritis Status: Acute
--- NOTE | 2018-01-23 15:05 | CP.PCM.PN ---
Subjective - Date & Time of Evaluation Date of Evaluation: 01/23/18 Time of Evaluation: 15:03 - Subjective Subjective: Patient states abdominal pain still present but somewhat diminished. Objective - Vital Signs/Intake and Output Vital Signs (last 24 hours): Temp Pulse Resp BP Pulse Ox 98 F 102 H 20 127/84 90 L 01/23/18 08:28 01/23/18 08:28 01/23/18 08:28 01/23/18 08:28 01/23/18 08:28 - Medications Medications: Current Medications Hydromorphone HCl (Dilaudid) 1 mg IVP Q4H PRN PRN Reason: Pain, moderate (4-7) Last Admin: 01/23/18 08:12 Dose: 1 mg Hydromorphone HCl (Dilaudid) 2 mg IVP Q3H PRN PRN Reason: Pain, severe (8-10) Last Admin: 01/23/18 13:33 Dose: 2 mg Ciprofloxacin (Cipro 400mg/200ml Dsw) 400 mg in 200 mls @ 200 mls/hr IVPB Q12 [facility] PRN Reason: Protocol Last Admin: 01/23/18 08:20 Dose: 200 mls/hr Metronidazole (Flagyl 500mg/100ml Ns) 100 mls @ 100 mls/hr IVPB Q8 [facility] PRN Reason: Protocol Last Admin: 01/23/18 08:18 Dose: 100 mls/hr Ondansetron HCl (Zofran Inj) 4 mg IVP Q4 PRN PRN Reason: Nausea/Vomiting Last Admin: 01/21/18 18:58 Dose: 4 mg Pantoprazole Sodium (Protonix Inj) 40 mg IVP Q12 [facility] Last Admin: 01/23/18 08:24 Dose: 40 mg - Labs Labs: 01/21/18 06:30 01/21/18 06:30 - Head Exam Head Exam: ATRAUMATIC - Eye Exam Pupil Exam: NORMAL ACCOMODATION - ENT Exam ENT Exam: Mucous Membranes Moist - Neck Exam Neck Exam: Full ROM - Respiratory Exam Respiratory Exam: Clear to Ausculation Bilateral - Cardiovascular Exam Cardiovascular Exam: REGULAR RHYTHM - GI/Abdominal Exam GI & Abdominal Exam: Soft, Tenderness Additional comments: midabdominal tenderness no guarding or rebound. Assessment and Plan (1) Enteritis Assessment & Plan: Continue IV abx. Patient to be transferred to [facility] for more definitive care. Status: Acute
[2018-01-23] MEDS ORDERED: DiphenhydrAMINE 50 mg/ml Inj IVP ONE (20:16)
[2018-01-23] MEDS ORDERED: HYDROmorphone 1 mg/ml ISec IVP STA (21:09)
[2018-01-24] MEDS: metroNIDAZOLE 500mg/100ml NS 100 ML IVPB SCH ×3 (00:50→17:45)
--- NOTE | 2018-01-24 07:19 | CP.PCM.PN ---
<David Masterson - Last Filed: 01/24/18 07:15> Subjective - Date & Time of Evaluation Date of Evaluation: 01/24/18 Time of Evaluation: 07:00 - Subjective Subjective: General Surgery Pt seen & examined. Pt continues to have abd pain but is a bity improved. Low back pain due to bed still present. Pt waiting to be transferred to [facility] for care under Dr. Cheung. [facility] called this AM- still no bed available for pt. No other complaints. Objective - Vital Signs/Intake and Output Vital Signs (last 24 hours): Temp Pulse Resp BP Pulse Ox 98.3 F 90 20 119/85 95 01/24/18 01:00 01/24/18 01:00 01/24/18 01:00 01/24/18 01:00 01/24/18 01:00 - Medications Medications: Current Medications Hydromorphone HCl (Dilaudid) 1 mg IVP Q4H PRN PRN Reason: Pain, moderate (4-7) Last Admin: 01/23/18 08:12 Dose: 1 mg Hydromorphone HCl (Dilaudid) 3 mg IVP Q3 PRN PRN Reason: Pain, severe (8-10) Last Admin: 01/24/18 05:24 Dose: 3 mg Ciprofloxacin (Cipro 400mg/200ml Dsw) 400 mg in 200 mls @ 200 mls/hr IVPB Q12 [facility] PRN Reason: Protocol Last Admin: 01/23/18 21:18 Dose: 200 mls/hr Metronidazole (Flagyl 500mg/100ml Ns) 100 mls @ 100 mls/hr IVPB Q8 [facility] PRN Reason: Protocol Last Admin: 01/24/18 00:50 Dose: 100 mls/hr Ondansetron HCl (Zofran Inj) 4 mg IVP Q4 PRN PRN Reason: Nausea/Vomiting Last Admin: 01/21/18 18:58 Dose: 4 mg Pantoprazole Sodium (Protonix Inj) 40 mg IVP Q12 [facility] Last Admin: 01/23/18 21:17 Dose: 40 mg - Labs Labs: 01/21/18 06:30 01/21/18 06:30 - Constitutional Appears: Non-toxic, No Acute Distress - Head Exam Head Exam: ATRAUMATIC, NORMOCEPHALIC - Eye Exam Eye Exam: EOMI. absent: Scleral icterus - ENT Exam ENT Exam: Mucous Membranes Dry Additional comments: trachea midline - Neck Exam Neck Exam: Full ROM - Respiratory Exam Respiratory Exam: NORMAL BREATHING PATTERN. absent: Respiratory Distress - Cardiovascular Exam Cardiovascular Exam: RRR, +S1, +S2 - GI/Abdominal Exam GI & Abdominal Exam: Soft, Tenderness (in epigastrum and suprapubic area). absent: Distended, Firm, Guarding, Rigid, Rebound - Extremities Exam Extremities Exam: Normal Capillary Refill. absent: Calf Tenderness, Pedal Edema - Back Exam Back Exam: paraspinal tenderness (R low back) - Neurological Exam Neurological Exam: Alert, Awake - Skin Skin Exam: Dry, Warm Assessment and Plan - Assessment and Plan (Free Text) Assessment: 32M with incarcerated diaphragmatic hernia Plan: IV valium to help with back pain. NPO Cont IVF Cont Pain control PRN Cont Anti-emetic PRN Transfer to [facility] when bed available- pt wants to go today and may leave and go himself if transfer doesn't happen today Non-operative mgmt at this time GI/DVT ppx Will D/W Dr. Dionte Masterson PGY4 <Harley Rapp - Last Filed: 01/24/18 19:42> Subjective - Date & Time of Evaluation Time of Evaluation: 19:00 - Subjective Subjective: Patient was seen and examined at the bedside. Agree with resident's note above. Objective - Vital Signs/Intake and Output Vital Signs (last 24 hours): Temp Pulse Resp BP Pulse Ox 98.3 F 123 H 20 121/80 93 L 01/24/18 16:32 01/24/18 16:32 01/24/18 16:32 01/24/18 16:32 01/24/18 16:32 - Medications Medications: Current Medications Diazepam (Valium) 5 mg IVP Q8 PRN PRN Reason: back pain Hydromorphone HCl (Dilaudid) 2 mg IVP Q3 PRN PRN Reason: Pain, severe (8-10) Last Admin: 01/24/18 13:05 Dose: 2 mg Hydromorphone HCl (Dilaudid) 1 mg IVP Q3 PRN PRN Reason: Pain, moderate (4-7) Last Admin: 01/24/18 17:13 Dose: 1 mg Metronidazole (Flagyl 500mg/100ml Ns) 100 mls @ 100 mls/hr IVPB Q8 [facility]IEL PRN Reason: Protocol Last Admin: 01/24/18 17:45 Dose: 100 mls/hr Sodium Chloride (Sodium Chloride 0.9%) 1,000 mls @ 999 mls/hr IV .Q1H1M [facility] Stop: 01/25/18 14:18 Last Admin: 01/24/18 14:00 Dose: 999 mls/hr Potassium Chloride/Dextrose/Sod Cl (Potassium Chl 40 Meq In D5-1/2ns) 1,000 mls @ 150 mls/hr IV .Q6H40M [facility] Stop: 01/25/18 14:21 Last Admin: 01/24/18 17:25 Dose: 150 mls/hr Piperacillin Sod/Tazobactam (Sod 3.375 gm/ Sodium Chloride) 100 mls @ 100 mls/ hr IVPB 0130,0730,1430,2030 [facility] PRN Reason: Protocol Lidocaine (Lidoderm) 1 ea TD DAILY [facility] Last Admin: 01/24/18 13:06 Dose: 1 ea Ondansetron HCl (Zofran Inj) 4 mg IVP Q4 PRN PRN Reason: Nausea/Vomiting Last Admin: 01/21/18 18:58 Dose: 4 mg Pantoprazole Sodium (Protonix Inj) 40 mg IVP Q12 [facility] Last Admin: 01/24/18 10:05 Dose: 40 mg - Labs Labs: 01/24/18 11:40 01/24/18 11:40
[2018-01-24] MEDS ORDERED: diaZEpam 10 mg/2 ml Inj IVP PRN (07:24)
[2018-01-24] MEDS: Ciprofloxacin 400mg/200ml D5W 400 MG/200 ML BAG IVPB SCH (10:01)
[2018-01-24] MEDS ORDERED: Lidocaine 5% Patch TD SCH (10:15)
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
[2018-01-24 11:53] LABS: HEMOGLOBIN 15.3 g/dL (12.0-18.0); MEAN CELL VOLUME 89.6 fl (80.0-94.0); MEAN CORPUSCULAR HEMOGLOBIN 30.3 pg (27.0-31.0); MEAN CORPUSCULAR HGB CONC 33.8 g/dL (33.0-37.0); RBC 5.06 Mil/uL (4.40-5.90); RED CELL DISTRIBUTION WIDTH 12.3 % (11.5-14.5); WHITE BLOOD COUNT 21.2 K/uL (4.8-10.8)
[2018-01-24 12:01] LABS: BLOOD UREA NITROGEN 20 mg/dl (9-20); CALCIUM 10.1 mg/dL (8.4-10.2); GFR AFRICAN-AMERICAN > 60; GFR NON-AFRICAN AMERICAN > 60
[2018-01-24] MEDS ORDERED: Potassium Chl 40 mEq in D5-1/2 1,000 ML IV SCH ×2 (14:30→15:30)
[2018-01-24] MEDS ORDERED: Sodium Chloride 0.9% 1,000 ML IV SCH (14:30)
[2018-01-24] MEDS ORDERED: Iohexol 300 100 ML IJ ONE (14:51)
[2018-01-24] MEDS ORDERED: Sodium Chloride 0.9% 0 ML IV ONE (14:51)
--- NOTE | 2018-01-24 15:11 | CP.PCM.PN ---
Objective - Vital Signs/Intake and Output Vital Signs (last 24 hours): Temp Pulse Resp BP Pulse Ox 97.8 F 110 H 19 110/71 93 L 01/24/18 08:20 01/24/18 08:20 01/24/18 08:20 01/24/18 08:20 01/24/18 08:20 - Medications Medications: Current Medications Diazepam (Valium) 5 mg IVP Q8 PRN PRN Reason: back pain Hydromorphone HCl (Dilaudid) 2 mg IVP Q3 PRN PRN Reason: Pain, severe (8-10) Last Admin: 01/24/18 13:05 Dose: 2 mg Hydromorphone HCl (Dilaudid) 1 mg IVP Q3 PRN PRN Reason: Pain, moderate (4-7) Metronidazole (Flagyl 500mg/100ml Ns) 100 mls @ 100 mls/hr IVPB Q8 [facility]IEL PRN Reason: Protocol Last Admin: 01/24/18 13:04 Dose: 100 mls/hr Piperacillin Sod/Tazobactam (Sod 3.375 gm/ Sodium Chloride) 100 mls @ 100 mls/ hr IVPB Q6 [facility] PRN Reason: Protocol Last Admin: 01/24/18 14:29 Dose: 100 mls/hr Sodium Chloride (Sodium Chloride 0.9%) 1,000 mls @ 999 mls/hr IV .Q1H1M [facility] Stop: 01/25/18 14:18 Potassium Chloride/Dextrose/Sod Cl (Potassium Chl 40 Meq In D5-1/2ns) 1,000 mls @ 150 mls/hr IV .Q6H40M [facility] Stop: 01/25/18 14:21 Lidocaine (Lidoderm) 1 ea TD DAILY [facility] Last Admin: 01/24/18 13:06 Dose: 1 ea Ondansetron HCl (Zofran Inj) 4 mg IVP Q4 PRN PRN Reason: Nausea/Vomiting Last Admin: 01/21/18 18:58 Dose: 4 mg Pantoprazole Sodium (Protonix Inj) 40 mg IVP Q12 [facility] Last Admin: 01/24/18 10:05 Dose: 40 mg - Labs Labs: 01/24/18 11:40 01/24/18 11:40 Assessment and Plan (1) Abdominal pain Status: Acute (2) Diaphragmatic hernia Status: Acute (3) Enteritis Status: Acute
--- NOTE | 2018-01-24 15:12 | CP.PCM.PN ---
Subjective - Date & Time of Evaluation Date of Evaluation: 01/24/18 Time of Evaluation: 13:50 - Subjective Subjective: F/U Abdominal pain/ Diaphragmatic hernia. Objective - Vital Signs/Intake and Output Vital Signs (last 24 hours): Temp Pulse Resp BP Pulse Ox 97.8 F 110 H 19 110/71 93 L 01/24/18 08:20 01/24/18 08:20 01/24/18 08:20 01/24/18 08:20 01/24/18 08:20 - Medications Medications: Current Medications Diazepam (Valium) 5 mg IVP Q8 PRN PRN Reason: back pain Hydromorphone HCl (Dilaudid) 2 mg IVP Q3 PRN PRN Reason: Pain, severe (8-10) Last Admin: 01/24/18 13:05 Dose: 2 mg Hydromorphone HCl (Dilaudid) 1 mg IVP Q3 PRN PRN Reason: Pain, moderate (4-7) Metronidazole (Flagyl 500mg/100ml Ns) 100 mls @ 100 mls/hr IVPB Q8 [facility] PRN Reason: Protocol Last Admin: 01/24/18 13:04 Dose: 100 mls/hr Piperacillin Sod/Tazobactam (Sod 3.375 gm/ Sodium Chloride) 100 mls @ 100 mls/ hr IVPB Q6 [facility] PRN Reason: Protocol Last Admin: 01/24/18 14:29 Dose: 100 mls/hr Sodium Chloride (Sodium Chloride 0.9%) 1,000 mls @ 999 mls/hr IV .Q1H1M [facility] Stop: 01/25/18 14:18 Potassium Chloride/Dextrose/Sod Cl (Potassium Chl 40 Meq In D5-1/2ns) 1,000 mls @ 150 mls/hr IV .Q6H40M [facility] Stop: 01/25/18 14:21 Lidocaine (Lidoderm) 1 ea TD DAILY [facility] Last Admin: 01/24/18 13:06 Dose: 1 ea Ondansetron HCl (Zofran Inj) 4 mg IVP Q4 PRN PRN Reason: Nausea/Vomiting Last Admin: 01/21/18 18:58 Dose: 4 mg Pantoprazole Sodium (Protonix Inj) 40 mg IVP Q12 [facility] Last Admin: 01/24/18 10:05 Dose: 40 mg - Labs Labs: 01/24/18 11:40 08/13/18 11:40 - Constitutional Appears: No Acute Distress - Head Exam Head Exam: NORMAL INSPECTION - Eye Exam Eye Exam: PERRL - ENT Exam ENT Exam: Normal Exam - Neck Exam Neck Exam: Normal Inspection - Respiratory Exam Respiratory Exam: NORMAL BREATHING PATTERN - Cardiovascular Exam Cardiovascular Exam: REGULAR RHYTHM - GI/Abdominal Exam GI & Abdominal Exam: Tenderness (mild abdominal), Normal Bowel Sounds. absent: Guarding, Rebound - Extremities Exam Extremities Exam: Normal Inspection - Back Exam Back Exam: NORMAL INSPECTION - Neurological Exam Neurological Exam: Alert, Oriented x3. absent: Motor Sensory Deficit - Psychiatric Exam Psychiatric exam: Anxious - Skin Skin Exam: Warm Assessment and Plan (1) Abdominal pain Status: Acute (2) Diaphragmatic hernia Status: Acute (3) Enteritis Status: Acute
[2018-01-24] MEDS ORDERED: Piperacillin/Tazobact 3.375 GM in Sodium Chloride 0.9% 100 ML IVPB SCH ×2 (16:00→20:30)
--- NOTE | 2018-01-24 16:04 | CARD ---
APPROVED REPORT Date of service: 01/24/2018 EKG Measurement Heart [id number] <Conclusion> Sinus tachycardia ST & T wave abnormality, consider inferior ischemia Abnormal ECG
[2018-01-24 16:33] VITALS: RESP 20
[2018-01-24] MEDS: HYDROmorphone 1 mg/ml ISec IVP PRN ×2 (17:13→20:43)
--- NOTE | 2018-01-24 17:39 | PCM.RRT ---
<Maggie Marinelli - Last Filed: 01/24/18 17:49> I.Reason for [employer] - A) Acute Change in Patient: (Select all that apply): Acute change in heart rate less than 50 or greater than 120 Subjective: [employer] called by nurse at 2:10 PM for 32 y/o male w/ tachycardia. Patient has incarcerated diaphramatic hernia. BP 122/93, HR 123, temp 98.1, o2 sat 97% Patient alert/responsive/follows command. He c/o epigastric and back pain, which were also present on admission. He denies SOB, weakness, dizziness. EKG ordered, showed sinus tachycardia. Patient given 1 L NS bolus and started on 2 L O2 NC Lactic acid level ordered. New left antecubital peripheral line established. Patient started on Zosyn 3.375 gm KCl- 40 mEq in D5W 1/2 NS 1000 mL ordered for maintenance 150mLs/hr BP 122/78 HR 118 O2 sat 97% - Neurological Status (Select all that apply): Alert, Responsive, Oriented, Verbal, Follows Commands - Respiratory Oxygen Delivery Method: Nasal Cannula @L/min Oxygen Flow Rate: 2 - Constitutional Appears: No Acute Distress - Head Head Exam: ATRAUMATIC - Eyes Eye Exam: Normal appearance - Respiratory Exam Respiratory Exam: Clear to Ausculation Bilateral, NORMAL BREATHING PATTERN - Cardiovascular Exam Cardiovascular Exam: Tachycardia, +S1, +S2 - GI/Abdominal Exam GI & Abdominal Exam: Soft, Tenderness, Normal Bowel Sounds - Neurological Exam Neurological Exam: Alert, Awake, Oriented x3 - Extremities Exam Extremities Exam: Normal Inspection. absent: Pedal Edema, Tenderness <Rasheeda Gonzalez - Last Filed: 01/24/18 18:10> Attending/Attestation - Attestation I have personally seen and examined this patient.: Yes I have fully participated in the care of the patient.: Yes I have reviewed all pertinent clinical information, including history, physical exam and plan: Yes Notes (Text): Sinus Tachycardia - likely sec to Pain and poss Volume Depletion ( pt NPO) - EKG Sinus tach -IVF bolus 1 liter of NS then 150 ml/hr - Pt refused rpt CT of the abdomen to r/o Incarceration/Perforation, also refused CT of Chest to r/o PE - Again reached out to [facility] to expedite transfer - Surgical team to eval pt -Transfer pt to [facility] for close monitoring
[2018-01-24 20:21] VITALS: BP 130/77; PULSE 133; TEMP 98.2; O2SAT 96
--- NOTE | 2018-01-24 22:42 | CP.PCM.DIS ---
Provider - Provider Date of Admission: 01/22/18 14:03 Attending physician: Bubba Taylor MD Diagnosis - Discharge Diagnosis (1) Abdominal pain Status: Acute Priority: High (2) Diaphragmatic hernia Status: Acute Priority: High (3) Enteritis Status: Acute Priority: High Hospital Course - Lab Results Lab Results: Micro Results 01/20/18 16:40 Blood-Venous Blood Culture - Preliminary NO GROWTH AFTER 4 DAYS 01/20/18 16:20 Blood-Venous Blood Culture - Preliminary NO GROWTH AFTER 4 DAYS Most Recent Lab Values WBC 21.2 K/uL (4.8-10.8) H 01/24/18 11:40 RBC 5.06 Mil/uL (4.40-5.90) 01/24/18 11:40 Hgb 15.3 g/dL (12.0-18.0) 01/24/18 11:40 Hct 45.4 % (35.0-51.0) 01/24/18 11:40 MCV 89.6 fl (80.0-94.0) 01/24/18 11:40 MCH 30.3 pg (27.0-31.0) 01/24/18 11:40 MCHC 33.8 g/dL (33.0-37.0) 01/24/18 11:40 RDW 12.3 % (11.5-14.5) 01/24/18 11:40 Plt Count 304 K/uL (130-400) 01/24/18 11:40 MPV 8.3 fl (7.2-11.7) 01/20/18 10:55 Neut % (Auto) 89.4 % (50.0-75.0) H 01/20/18 10:55 Lymph % (Auto) 6.6 % (20.0-40.0) L 01/20/18 10:55 Coal % (Auto) 3.8 % (0.0-10.0) 01/20/18 10:55 Eos % (Auto) 0.0 % (0.0-4.0) 01/20/18 10:55 Baso % (Auto) 0.2 % (0.0-2.0) 01/20/18 10:55 Neut # (Auto) 11.5 K/uL (1.8-7.0) H 01/20/18 10:55 Lymph # (Auto) 0.9 K/uL (1.0-4.3) L 01/20/18 10:55 Coal # (Auto) 0.5 K/uL (0.0-0.8) 01/20/18 10:55 Eos # (Auto) 0.0 K/uL (0.0-0.7) 01/20/18 10:55 Baso # (Auto) 0.0 K/uL (0.0-0.2) 01/20/18 10:55 Neutrophils % (Manual) 86 % (42-75) H 01/20/18 10:55 Lymphocytes % (Manual) 10 % (20-50) L 01/20/18 10:55 Reactive Lymphs % 1 % (0-0) H 01/20/18 10:55 Monocytes % (Manual) 3 % (0-10) 01/20/18 10:55 Platelet Estimate Normal (NORMAL) 01/20/18 10:55 RBC Morphology Normal (NORMAL) 01/20/18 10:55 Sodium 133 mmol/l (132-148) 01/24/18 11:40 Potassium 3.9 MMOL/L (3.6-5.0) 01/24/18 11:40 Chloride 95 mmol/L (98-107) L 01/24/18 11:40 Carbon Dioxide 25 mmol/L (22-30) 01/24/18 11:40 Anion Gap 17 (10-20) 01/24/18 11:40 BUN 20 mg/dl (9-20) 01/24/18 11:40 Creatinine 0.8 mg/dl (0.8-1.5) 01/24/18 11:40 Est GFR ( Amer) > 60 01/24/18 11:40 Est GFR (Non-Af Amer) > 60 01/24/18 11:40 POC Glucose (mg/dL) 125 mg/dL (65-110) H 01/24/18 14:08 Random Glucose 149 mg/dL (75-110) H 01/24/18 11:40 Lactic Acid 1.5 MMOL/L (0.7-2.1) 01/24/18 14:20 Calcium 10.1 mg/dL (8.4-10.2) 01/24/18 11:40 Total Bilirubin 0.9 mg/dl (0.2-1.3) 01/21/18 06:30 AST 24 U/L (17-59) 01/21/18 06:30 ALT 36 U/L (21-72) 01/21/18 06:30 Alkaline Phosphatase 73 U/L (38-126) 01/21/18 06:30 Total Protein 7.6 G/DL (6.3-8.2) 01/21/18 06:30 Albumin 4.6 g/dL (3.5-5.0) 01/21/18 06:30 Globulin 2.9 gm/dL (2.2-3.9) 01/21/18 06:30 Albumin/Globulin Ratio 1.6 (1.0-2.1) 01/21/18 06:30 Lipase 140 U/L (23-300) 01/20/18 11:15 Discharge Exam - Head Exam Head Exam: NORMAL INSPECTION Discharge Plan - Follow Up Plan Condition: STABLE Disposition: HOME/ ROUTINE Instructions: Acute Abdomen (Belly Pain), Adult (DC), Abdominal Hernia (DC) Additional Instructions: follow up with primary MD 1 week Referrals: Harley Rapp MD [Staff Provider] - Harley Saldana MD [Staff Provider] -
== END 2018-01-24 21:04 | disposition short-term general hospital (02) | DRG 183 ==
LOC: H.ER 09:36 → H.ERHOLD 15:53 → H.MEDSURG1 17:35 → OBSVTOIN 01-21 12:46 → INTOOBSV 01-21 12:46 → OBSVTOIN 01-22 14:03 → H.TEL 01-24 15:00
PROVIDERS: ADMIT Internal Medicine Pulmonary Disease; ATTEND Internal Medicine Pulmonary Disease
DX: K44.0 Diaphragmatic hernia with obstruction, without gangrene (principal); K52.89 Other specified noninfective gastroenteritis and colitis; Q43.3 Congenital malformations of intestinal fixation; K21.9 Gastro-esophageal reflux disease without esophagitis; G89.29 Other chronic pain; R00.0 Tachycardia, unspecified; M54.5 Low back pain